=== PATIENT | female | born 1950 | race Caucasian/White ===

== ENCOUNTER 2016-09-16 10:27 | Emergency (ER) | payer OTHER ==
[2016-09-16 10:30] VITALS: PULSE 66; TEMP 97.6; BMI 20.2
--- NOTE | 2016-09-16 11:14 | PDOC ---
History of Present Illness - General History Source: Patient Exam Limitations: No Limitations - History of Present Illness Initial Comments: 09/16/16 12:06 The patient is a 66 year old female with a significant past medical history of hypercholesterolemia and rapid heart beat (on Tenormin), who presents to the ER with progressively worsening abdominal discomfort and diarrhea for 8 days. Patient states her pain began after she went to a green party and ate [place] [employer]. She says other people at the green party ate the same meal but did not report similar symptoms after. Patient localizes the abdominal pain to the middle. She describes the pain as burning and states she feels the burn going through her intestines. Patient took Tylenol and Pepto Bismol for her symptoms. She states has been noticing black stool for several days. Patient reports she has not eaten anything since yesterday but has had several bowel movements. Denies history of abdominal surgery or ulcers Denies fever, chills, cough Denies nausea, vomiting Denies dizziness PCP: Dr. Knott GI: Dr. Hall <Tatianna Lambert - Last Filed: 09/16/16 15:41> - General History Source: Patient, Old Records Exam Limitations: No Limitations <Cheli Cloud - Last Filed: 09/16/16 15:55> - General Chief Complaint: Pain Stated Complaint: ABD PAIN Time Seen by Provider: 09/16/16 11:13 Past History <Tatianna Lambert - Last Filed: 09/16/16 15:41> - Past Medical History Cardiac Disorders: Yes (rapid heart beat) Hypercholesterolemia: Yes - Surgical History Abdominal Surgery: (tubal ligation) Cholecystectomy: Yes - Psycho/Social/Smoking Cessation Hx Suicidal Ideation: No Smoking History: Current every day smoker Number of Cigarettes Smoked Daily: 30 Information on smoking cessation initiated: Yes 'Breaking Loose' booklet given: 09/16/16 Hx Alcohol Use: No Drug/Substance Use Hx: No Substance Use Type: None <Cheli Cloud - Last Filed: 09/16/16 15:55> - Past Medical History Allergies/Adverse Reactions: Allergies Allergy/AdvReac Type Severity Reaction Status Date / Time Penicillins Allergy Verified 09/16/16 10:30 Home Medications: Ambulatory Orders Ciprofloxacin [Cipro (Restricted To Id)] 500 mg PO Q12H #20 tablet 09/16/16 Metronidazole [Flagyl -] 500 mg PO TID #30 tablet 09/16/16 Review of Systems - Review of Systems Able to Perform ROS?: Yes Comments:: 09/16/16 12:06 GENERAL/CONSTITUTIONAL: No fever or chills. No weakness. HEAD, EYES, EARS, NOSE AND THROAT: No change in vision. No ear pain or discharge. No sore throat. CARDIOVASCULAR: No chest pain or shortness of breath. RESPIRATORY: No cough, wheezing, or hemoptysis. GASTROINTESTINAL: (+) abdominal pain (+) Diarrhea (+) black stool. No nausea, vomiting, constipation. GENITOURINARY: No dysuria, frequency, or change in urination. MUSCULOSKELETAL: No joint or muscle swelling or pain. No neck or back pain. SKIN: No rash NEUROLOGIC: No headache, vertigo, loss of consciousness, or change in strength/ sensation. ENDOCRINE: No increased thirst. No abnormal weight change. HEMATOLOGIC/LYMPHATIC: No anemia, easy bleeding, or history of blood clots. ALLERGIC/IMMUNOLOGIC: No hives or skin allergy. <Uts,Tatianna - Last Filed: 09/16/16 15:41> *Physical Exam - Vital Signs Last Vital Signs Temp Pulse Resp BP Pulse Ox 97.6 F 66 18 177/84 97 09/16/16 10:28 09/16/16 10:28 09/16/16 10:28 09/16/16 10:28 09/16/16 10:28 - Physical Exam Comments: 09/16/16 12:08 GENERAL: Awake, alert, and fully oriented, in no acute distress HEAD: No signs of trauma EYES: PERRLA, EOMI, sclera anicteric, conjunctiva clear ENT: Auricles normal inspection, hearing grossly normal, nares patent, oropharynx clear without exudates. Moist mucosa NECK: Normal ROM, supple, no lymphadenopathy, JVD, or masses LUNGS: Breath sounds equal, clear to auscultation bilaterally. No wheezes, and no crackles HEART: Regular rate and rhythm, normal S1 and S2, no murmurs, rubs or gallops ABDOMEN: Soft, nontender, normoactive bowel sounds. No guarding, no rebound. No masses EXTREMITIES: Normal range of motion, no edema. No clubbing or cyanosis. No cords, erythema, or tenderness NEUROLOGICAL: Cranial nerves II through XII grossly intact. Normal speech, normal gait SKIN: Warm, Dry, normal turgor, no rashes or lesions noted. <Tatianna Lambert - Last Filed: 09/16/16 15:41> - Vital Signs Last Vital Signs Temp Pulse Resp BP Pulse Ox 97.6 F 66 18 177/84 97 09/16/16 10:28 09/16/16 10:28 09/16/16 10:28 09/16/16 10:28 09/16/16 10:28 <Cheli Cloud - Last Filed: 09/16/16 15:55> ED Treatment Course - LABORATORY CBC & Chemistry Diagram: 09/16/16 11:50 09/16/16 11:50 - RADIOLOGY Radiograph Interpretation: 09/16/16 15:[address] impression reported by Dr. Lexis Lewis: Mild centrilobular emphysema and included portion of the right lung base. Small hiatus hernia. Status post cholcystectomy. Extensive diverticulosis coli mainly the sigmoid colon with likely chronic thickening of the proximal and mid sigmoid colon wall. There is questionable mild acute diverticulitis at the junction of the distal descending and proximal sigmoid colon. Follow-up is needed. 1.1 cm left adrenal nodule likely representing an adrenal adenoma. Grade 2 anterolisthesis of L5 cordell S1 with significant degenerative disc disease , bilateral spondylolysis and mild disc bulge likely impinging both L5 nerve roots. <Tatianna Lambert - Last Filed: 09/16/16 15:41> - LABORATORY CBC & Chemistry Diagram: 09/16/16 11:50 09/16/16 11:50 <Cheli Cloud - Last Filed: 09/16/16 15:55> Medical Decision Making - Medical Decision Making 09/16/16 11:32 66-year-old female with a the above stated past medical history presents the emergency Department with complaints of a day history of mid abdominal pain and epigastric pain as well as diarrhea with dark stool today. Differential diagnosis includes but is not limited to: Colitis, gastroenteritis, GI bleed, anemia, pancreatitis, peptic ulcer disease, electrolyte abnormality, dehydration , toxic/metabolic derangement. Plan: 1. Labs 2. Chest x-ray 3. EKG 4. Urine analysis 5. Will likely require abdominal imaging 6. Observe and reevaluate 09/16/16 15:52 Addendum: The labs are reviewed and are noted in the EMR. CT scan of the abdomen and pelvis shows small foci of diverticulitis with diverticulosis. Since the patient is afebrile, able to tolerate by mouth and has no white blood cell count will try treatment as an outpatient with Cipro and Flagyl. I have spoken with the patient regarding this diagnosis as well as the importance of follow-up. Her first dose of each medication will be given in the emergency department. I have also advised the patient to follow-up with her primary care physician within the next 1-3 days and to return to the emergency department if her symptoms persist, worsen, or new symptoms arise. <Cheli Cloud - Last Filed: 09/16/16 15:55> *DC/Admit/Observation/Transfer - Attestations Scribe Attestion: 09/16/16 12:08 Documentation prepared by Tatianna Lambert, acting as medical physicist for Cheli Cloud MD. <Tatianna Lambert - Last Filed: 09/16/16 15:41> - Discharge Dispostion Admit: No - Attestations Physician Attestion: 09/16/16 11:33 I, Dr. Cheli Cloud, attest that the scribes documentation that appears above has been prepared under my direction and personally reviewed by me in its entirety. I confirmed that the note above accurately reflects all work, treatment, procedures, and medical decision-making performed by me. <Cheli Cloud - Last Filed: 09/16/16 15:55> Diagnosis at time of Disposition: Abdominal pain, Diarrhea, Diverticulitis of intestine - Discharge Dispostion Condition at time of disposition: Stable - Prescriptions Prescriptions: Ciprofloxacin [Cipro (Restricted To Id)] 500 mg PO Q12H #20 tablet Metronidazole [Flagyl -] 500 mg PO TID #30 tablet - Referrals Referrals: Murphy Knott MD [Primary Care Provider] - - Patient Instructions Printed Discharge Instructions: DI for Diverticulitis Additional Instructions: You're being treated for diverticulitis with Cipro 500 mg twice daily for 10 days and Flagyl 500 mg 3 times a day for 10 days. Please follow-up with your primary care physician within the next 1-3 days and return to the emergency department if your symptoms persist, worsen, or new symptoms arise.
[2016-09-16 12:29] LABS: ALBUMIN 4.7 g/dl (3.4-5.0); ANION GAP 10 (8-16); CALCIUM 10.3 mg/dL (8.5-10.1); CO2 30 mmol/L (21-32); GLUCOSE,RANDOM 107 mg/dL (74-106); MAGNESIUM 2.2 mg/dL (1.8-2.4); SGPT/ALT 24 U/L (12-78)
[2016-09-16 12:33] LABS: URINE APPEARANCE CLEAR; URINE BILIRUBIN NEGATIVE (NEGATIVE); URINE COLOR STRAW; URINE GLUCOSE (UA) NEGATIVE (NEGATIVE); URINE KETONE NEGATIVE (NEGATIVE); URINE LEUK ESTERASE NEGATIVE (NEGATIVE); URINE NITRITE NEGATIVE (NEGATIVE); URINE PROTEIN NEGATIVE (NEGATIVE); URINE UROBILINOGEN NEGATIVE E.U./dl (0.2-1.0)
[2016-09-16 12:33] LABS: ALK PHOS 63 U/L (45-117); BILIRUBIN,TOTAL 0.7 mg/dL (0.2-1.0); CREATININE 0.8 mg/dL (0.55-1.02); PHOSPHOROUS 4.3 mg/dL (2.5-4.9); SGOT/AST 18 U/L (15-37); TOT PROT 7.8 g/dl (6.4-8.2); TROPONIN I < 0.02 ng/ml (0.00-0.05)
[2016-09-16 12:36] LABS: BASOPHIL 0.5 % (0-2.0); EOSINOPHIL 0.7 % (0-4.5); MCH 32.5 pg (25.7-33.7); MCHC 33.4 g/dl (32.0-36.0); MEAN CELL VOLUME 97.3 fl (80-96); MEAN PLT VOLUME 8.9 fl (7.5-11.1); NEUTROPHILS 67.1 % (42.8-82.8); PLATELET COUNT 208 K/MM3 (134-434); RDW 13.3 % (11.6-15.6); WHITE BLOOD COUNT 9.4 K/mm3 (4.0-10.0)
[2016-09-16 12:47] LABS: URINE BLOOD 1+ (NEGATIVE)
--- NOTE | 2016-09-16 14:07 | EKG ---
Test Reason : Blood Pressure : / mmHG Vent. Rate : 067 BPM Atrial Rate : 067 BPM P-R Int : 104 ms QRS Dur : 090 ms QT Int : 386 ms P-R-T Axes : 049 057 055 degrees QTc Int : 407 ms SINUS RHYTHM WITH SHORT WV OTHERWISE NORMAL ECG WHEN COMPARED WITH ECG OF 08-JUN-2002 05:44, NO SIGNIFICANT CHANGE WAS FOUND Confirmed by EDWARDO BARFIELD MD ([id number]) on 09/16/2016 2:06:46 PM Referred By: Confirmed By:EDWARDO BARFIELD MD
[2016-09-16 14:52] LABS: URINE RBC 3 /hpf (0-3); URINE WBC <1 /hpf (3-5)
[2016-09-16] MEDS ORDERED: CIPROFLOXACIN 500 MG TABLET (RESTRICTED TO ID) PO ONE (15:44)
[2016-09-16] MEDS ORDERED: metroNIDAZOLE 250 MG TABLET PO ONE (15:44)
[2016-09-16] MEDS ORDERED: metroNIDAZOLE 250 MG TABLET ONE (15:54)
[2016-09-16 16:17] VITALS: BP 114/65
== END 2016-09-16 16:22 | disposition home or self-care (01) ==
LOC: JER 10:27
DX: K57.20 Diverticulitis of large intestine with perforation and abscess without bleeding (principal)
CPT/HCPCS: 36415; 71020-TC; 74176-TC; 80053; 81003; 81015; 82272; 82550; 83690; 83735; 84100; 84484; 85025; 93005; 93010; 99282-25

== ENCOUNTER 2017-08-20 17:48 | Emergency (ER) | payer OTHER ==
--- NOTE | 2017-08-20 18:02 | PDOC ---
Attending Attestation - Resident Resident Name: Murphy Cottrell - ED Attending Attestation I have performed the following: I have examined & evaluated the patient, The case was reviewed & discussed with the resident, I agree w/resident's findings & plan, Exceptions are as noted <Ema Castaneda - Last Filed: 08/20/17 18:01> - HPI HPI: 08/20/17 18:32 The patient is a 66 year old female with a significant past medical history of diverticulitis, hypercholesterolemia, and rapid heart beat who presents to the emergency department with diarrhea and rectal bleeding for 1 day. The patient reports that she had a sudden onset of diarrhea this morning after she woke up. She reports that her diarrhea was runny and contained blood. The patient reports that her diarrhea has been constant for about every 20 minutes. The patient reports associated cramps and chills earlier today. The patient denies any other complaints. She denies any nausea, vomiting or fever. She denies any shortness of breath or chest pain . The patient denies any numbness, weakness or tingling. The patient also denies any dysuria, urinary frequency, urgency and hematuria. It is noted that the patient has a history of diverticulitis but she reports that this complication does not feel like her normal diverticulitis symptoms. Allergies: penicillin Past surgical history: none reported Social history: No reported Documentation prepared by Garrett Mcleod, acting as director global medical affairs for Ema Castaneda MD. <Garrett Mcleod - Last Filed: 08/20/17 18:34> Review of Systems - Review of Systems Able to Perform ROS?: Yes Comments:: 08/20/17 18:32 GENERAL/CONSTITUTIONAL: (+) chils. No fever . No weakness. HEAD, EYES, EARS, NOSE AND THROAT: No change in vision. No ear pain or discharge. No sore throat. CARDIOVASCULAR: No chest pain or shortness of breath. RESPIRATORY: No cough, wheezing, or hemoptysis. GASTROINTESTINAL: (+) diarrhea with blood. No nausea, vomiting, or constipation. GENITOURINARY: No dysuria, frequency, or change in urination. MUSCULOSKELETAL: No joint or muscle swelling or pain. No neck or back pain. SKIN: No rash NEUROLOGIC: No headache, vertigo, loss of consciousness, or change in strength/ sensation. ENDOCRINE: No increased thirst. No abnormal weight change. HEMATOLOGIC/LYMPHATIC: No anemia, easy bleeding, or history of blood clots. ALLERGIC/IMMUNOLOGIC: No hives or skin allergy. Is the patient limited [place]ander proficient: No <Garrett Mcleod - Last Filed: 08/20/17 18:34>
--- NOTE | 2017-08-20 18:17 | PDOC ---
History of Present Illness - General Chief Complaint: Rectal Bleed Stated Complaint: DIARRHEA,RECTAL BLEEDING Time Seen by Provider: 08/20/17 17:51 History Source: Patient Exam Limitations: No Limitations - History of Present Illness Initial Comments: 08/20/17 18:01 The patient is a 66F with a PMH of HLD, diverticulitis, and rapid heart beat ( on Tenormin) who presents to the ER with bloody diarrhea. The patient states that she had a normal bowel movement this morning then 1/2 hour later, felt b/l lower quadrant. She then felt an urge to defecate, went to the restroom, and had watery diarrhea with blood. The blood was on the toilet paper and in the bowl. The patient denies nausea, vomiting, CP, SOB, fever. She admits to finishing a z-pack 3 weeks ago for "the flu". Past History - Past Medical History Allergies/Adverse Reactions: Allergies Allergy/AdvReac Type Severity Reaction Status Date / Time Penicillins Allergy Mild Rash Verified 08/20/17 17:50 Iodinated Contrast- Oral and AdvReac Intermediate Verified 08/20/17 18:19 IV Dye Home Medications: Ambulatory Orders Aspirin [ASA -] 81 mg PO DAILY 08/20/17 Atenolol [Tenormin] 50 mg PO BID 08/20/17 Ezetimibe/Simvastatin [Vytorin 10-20 mg Tablet] 1 tab PO DAILY 08/20/17 Magnesium Chloride [Slow-Mag -] 0 mg PO DAILY 08/20/17 Ranitidine HCl [Zantac] 150 mg PO DAILY 08/20/17 Cardiac Disorders: Yes (rapid heart beat) COPD: No GI Disorders: Yes HTN: Yes Hypercholesterolemia: Yes - Surgical History Abdominal Surgery: (tubal ligation) Cholecystectomy: Yes - Suicide/Smoking/Psychosocial Hx Smoking History: Current every day smoker Number of Cigarettes Smoked Daily: 30 Information on smoking cessation initiated: Yes 'Breaking Loose' booklet given: 08/20/17 Hx Alcohol Use: No Drug/Substance Use Hx: No Substance Use Type: None Review of Systems - Review of Systems Able to Perform ROS?: Yes Comments:: 08/20/17 18:26 GENERAL/CONSTITUTIONAL: Positive for chills. No fever. No weakness. HEAD, EYES, EARS, NOSE AND THROAT: No change in vision. No ear pain or discharge. No sore throat. CARDIOVASCULAR: No chest pain, palpitations, or lightheadedness. RESPIRATORY: No cough, wheezing, shortness of breath, or hemoptysis. GASTROINTESTINAL: Positive for abdominal cramping and watery diarrhea with blood. No nausea or vomiting. GENITOURINARY: No dysuria, frequency, hematuria, or change in urination. MUSCULOSKELETAL: No joint or muscle swelling or pain. No neck or back pain. SKIN: No rash or lesions. NEUROLOGIC: No headache, numbness, tingling, weakness, loss of consciousness, or change in strength/sensation. ENDOCRINE: No increased thirst. No abnormal weight change. HEMATOLOGIC/LYMPHATIC: No anemia, easy bleeding, or history of blood clots. ALLERGIC/IMMUNOLOGIC: No hives or skin allergy. Is the patient limited Jamaican proficient: No *Physical Exam - Vital Signs Last Vital Signs Temp Pulse Resp BP Pulse Ox 97.6 F 76 18 114/71 99 08/20/17 17:49 08/20/17 17:49 08/20/17 17:49 08/20/17 17:49 08/20/17 17:49 - Physical Exam Comments: 08/20/17 18:30 GENERAL: Well developed, well nourished. Awake and alert. No acute distress. HEENT: Normocephalic, atraumatic. Hearing grossly normal. Moist mucous membranes. PERRLA, EOMI. No conjunctival pallor. Sclera are non-icteric. NECK: Supple. Full ROM. No JVD. CARDIOVASCULAR: Regular rate and rhythm. No murmurs, rubs, or gallops. PULMONARY: No evidence of respiratory distress. Lungs clear to auscultation bilaterally. No wheezing, rales or rhonchi. ABDOMINAL: Soft. Non-tender. Non-distended. No rebound or guarding. No organomegaly. Normoactive bowel sounds. RECTAL: External hemorrhoid present, nontender and nonthrombosed. Rectal vault empty. No gross blood noted. GENITOURINARY: No CVA tenderness bilaterally. MUSCULOSKELETAL: Normal range of motion at all joints. No bony deformities or tenderness. EXTREMITIES: No cyanosis. No clubbing. No edema. No calf tenderness. SKIN: Warm and dry. Normal capillary refill. No rashes. No jaundice. NEUROLOGICAL: Alert, awake, appropriate. Cranial nerves 2-12 intact. Normal speech. Gait is normal without ataxia. PSYCHIATRIC: Cooperative. Good eye contact. Appropriate mood and affect. Medical Decision Making - Medical Decision Making 08/20/17 18:31 The patient is a 66F with a PMH of diverticulitis who presents to the ER after experiencing multiple episodes of watery diarrhea and bleeding. With her history of diverticulitis, I will image her abdomen to r/o infection/abscess. Will have to do it w/o contrast as the patient is allergic to IV contrast. Pending labs/imaging. Will give 1L NS for hydration. 08/20/17 19:01 Pt signed out to Dr. Saunders. *DC/Admit/Observation/Transfer - Discharge Dispostion Condition at time of disposition: Stable - Referrals - Patient Instructions Printed Discharge Instructions: Smoking Cessation - Post Discharge Activity
[2017-08-20] MEDS ORDERED: SODIUM CHLORIDE 0.9% 1000 ML INFUS.BAG IV ONE (18:20)
[2017-08-20 18:25] VITALS: BP 114/71; PULSE 76; TEMP 97.6; BMI 20.5
[2017-08-20 19:10] LABS: BASO % 0.7 % (0-2.0); HEMATOCRIT 41.3 % (32.4-45.2); LYMPH % 29.3 % (8-40); MCH 31.7 pg (25.7-33.7); MEAN CELL VOLUME 93.4 fl (80-96); MEAN PLT VOLUME 8.7 fl (7.5-11.1); MONO % 5.6 % (3.8-10.2); NEUT % 62.4 % (42.8-82.8); PLATELET COUNT 211 K/MM3 (134-434); RBC 4.43 M/mm3 (3.60-5.2); RDW 12.9 % (11.6-15.6); WHITE BLOOD COUNT 8.8 K/mm3 (4.0-10.8)
[2017-08-20 19:23] LABS: ALBUMIN 4.3 g/dl (3.5-5.0); ALK PHOS 58 U/L (32-92); ANION GAP 7 (8-16); BILIRUBIN,TOTAL 0.6 mg/dl (0.2-1.0); BLOOD UREA NITROGEN 17 mg/dl (7-18); CALCIUM 9.5 mg/dl (8.4-10.2); CHLORIDE 103 mmol/L (98-107); CO2 28 mmol/L (22-28); GLUCOSE,RANDOM 91 mg/dl (74-106); POTASSIUM 4.5 mmol/L (3.5-5.1); SGOT/AST 24 U/L (10-42); SGPT/ALT 13 U/L (10-40); SODIUM 138 mmol/L (136-145); TOT PROT 6.9 g/dl (6.4-8.3)
--- NOTE | 2017-08-20 19:38 | PDOC ---
*Physical Exam - Vital Signs Last Vital Signs Temp Pulse Resp BP Pulse Ox 97.6 F 76 18 114/71 99 08/20/17 17:49 08/20/17 17:49 08/20/17 17:49 08/20/17 17:49 08/20/17 17:49 ED Treatment Course - LABORATORY CBC & Chemistry Diagram: 08/20/17 18:45 04 18:45 - ADDITIONAL ORDERS Additional order review: Laboratory Results 08/20/17 04 18:45 18:42 Sodium 138 Potassium 4.5 Chloride 103 Carbon Dioxide 28 Anion Gap 7 L BUN 17 Creatinine 1.0 Creat Clearance w eGFR 55.47 Random Glucose 91 Calcium 9.5 Total Bilirubin 0.6 AST 24 ALT 13 Alkaline Phosphatase 58 Total Protein 6.9 Albumin 4.3 Stool Occult Blood Negative 08/20/17 18:45 RBC 4.43 MCV 93.4 MCHC 34.0 RDW 12.9 MPV 8.7 Neutrophils % 62.4 Lymphocytes % 29.3 Monocytes % 5.6 Eosinophils % 2.0 Basophils % 0.7 - Medications Given in the ED: ED Medications Discontinued Medications Generic Name Dose Route Start Last Admin Trade Name Freq PRN Reason Stop Dose Admin Sodium Chloride 1,000 ml 08/20/17 18:20 08/20/17 18:46 Normal Saline - IV 08/20/17 18:21 1,000 ml ONCE ONE Administration Progress Note - Progress Note Progress Note: Care of this patient was transferred to co from Dr. Castaneda and the EM resident. Patient is a 66-year-old female with history of diverticulitis. Patient comes in complaining of some left lower quadrant pain and diarrhea. Patient did have an episode of bloody diarrhea however on Dr. Giraldo's exam patient does have a external hemorrhoid that may have been the source of the bloody diarrhea. Patient is being hydrated with IV fluid and her lab work shows a normal white count there is no left shift and the chemistries are all normal. Patient has a CT of the abdomen and pelvis to rule out diverticulitis pending. We'll follow-up results of CAT scan and make appropriate disposition 20:00 Reevaluation patient feels better. She's had no more diarrhea here in the emergency room. Patient given results of her lab work which was normal her CAT scan which was also normal and discharged home Patient will follow-up with her primary care doctor *DC/Admit/Observation/Transfer Diagnosis at time of Disposition: Dehydration Diarrhea Qualifiers: Diarrhea type: unspecified type Qualified Code(s): R19.7 - Diarrhea, unspecified - Discharge Dispostion Disposition: HOME Condition at time of disposition: Stable Admit: No - Referrals - Patient Instructions Printed Discharge Instructions: Smoking Cessation Additional Instructions: If the diarrhea returns you can take Imodium or Pepto-Bismol as directed on the bottle. Make sure you stay well hydrated. Return to the emergency department immediately with ANY new, persistent or worsening symptoms. Continue any medications as previously prescribed by your physician. You should follow up with your primary doctor as soon as possible regarding today's emergency department visit. . Please make sure your doctor reviews the results of your emergency evaluation. Thank you for coming to the Emergency Department today for your care. It was a pleasure to see you today. Please note that your evaluation is INCOMPLETE until you follow-up with your doctor. - Post Discharge Activity
== END 2017-08-20 20:10 | disposition home or self-care (01) ==
LOC: FER 17:48
PROC: 3E0337Z Introduction of Electrolytic and Water Balance Substance into Peripheral Vein, Percutaneous Approach (ICD-10-PCS; principal; 2017-08-20)
DX: R68.83 Chills (without fever) (principal); E86.0 Dehydration; R19.7 Diarrhea, unspecified; E78.5 Hyperlipidemia, unspecified; I10 Essential (primary) hypertension; E78.00 Pure hypercholesterolemia, unspecified
CPT/HCPCS: 36415; 74176-TC; 80053; 82272; 85025; 99282-25; J7030

== ENCOUNTER 2018-08-09 15:34 | Emergency (ER) | payer OTHER ==
--- NOTE | 2018-08-09 15:37 | PDOC ---
History of Present Illness - General Chief Complaint: Injury Stated Complaint: left ankle injury Time Seen by Provider: 08/09/18 15:37 History Source: Patient Exam Limitations: No Limitations - History of Present Illness Initial Comments: 08/09/18 15:49 HPI 67F with a PMH of HLD, diverticulitis, and rapid heart beat (on Tenormin), GERD who presents to the ER presenting with left foot pain and swelling s/p twisting while hopping over ramos when gardening. She slid on the wet dirt and rolled her foot/ankle. she subsequently hopped to get around, unable to bear weight and limped. No fall or additional trauma. No weakness or paresthesias. No LOC or head injury. Took aleve 1 hour [employer], with relief. Allergies: pcn, iodine and contrast dye Past Medical History: HLD, diverticulitis, and rapid heart beat (on Tenormin), GERD Social history: Lives with family. + smoking. No alcohol. No illicit drugs. Surgical history: noncontributory 08/09/18 15:50 Past History - Past Medical History Allergies/Adverse Reactions: Allergies Allergy/AdvReac Type Severity Reaction Status Date / Time Penicillins Allergy Mild Rash Verified 08/09/18 15:39 Iodinated Contrast- Oral and AdvReac Intermediate Verified 08/09/18 15:39 IV Dye Home Medications: Ambulatory Orders Aspirin [ASA -] 81 mg PO DAILY 08/20/17 Atenolol [Tenormin] 50 mg PO BID 08/20/17 Ezetimibe/Simvastatin [Vytorin 10-20 mg Tablet] 1 tab PO DAILY 08/20/17 Magnesium Chloride [Slow-Mag -] 0 mg PO DAILY 08/20/17 Ranitidine HCl [Zantac] 150 mg PO DAILY 08/20/17 Ibuprofen [Advil -] 400 mg PO ONCE PRN 08/09/18 Cardiac Disorders: Yes (rapid heart beat) COPD: No GI Disorders: Yes HTN: Yes Hypercholesterolemia: Yes - Surgical History Abdominal Surgery: (tubal ligation) Cholecystectomy: Yes - Suicide/Smoking/Psychosocial Hx Smoking History: Current every day smoker Number of Cigarettes Smoked Daily: 30 'Breaking Loose' booklet given: 08/20/17 Hx Alcohol Use: No Drug/Substance Use Hx: No Substance Use Type: None Review of Systems - Review of Systems Able to Perform ROS?: Yes Comments:: 08/09/18 15:49 Review of systems MUSCULOSKELETAL: + joint pain and swelling. No neck or back pain. SKIN: no redness or skin changes, no discharge, no rash. No wounds. Hematologic: no easy bruising/bleeding. NEUROLOGIC: No headache, dizziness, LOC or altered mental status. No weakness, numbness or tingling. Allergic/Immunologic: medication allergies All other systems reviewed and negative, or as documented in HPI. *Physical Exam - Physical Exam Comments: 08/09/18 15:50 General: NAD, well appearing Vascular: 2+ DP pulses symmetric and equal. Back: no midline tenderness, no stepoffs, FROM Focused MSK/Neuro Exam notable for soft compartments, Cap refill <2 sec. Proximal and distal strength 5/5, employee representative strength 5/5 - equal and symmetric. Plantar flexion and dorsiflexion 5/5. FROM. Sensation grossly intact to light touch. No prox tibial/knee tenderness. +left lateral dorsal foot tenderness, warmth and palp swelling. No crepitus. No ankle/malleolar tenderness, inversion/eversion intact 5/5 against resistance. Skin: color normal color, warm and well perfused. No ecchymosis or wounds/skin breaks Medical Decision Making - Medical Decision Making 08/09/18 15:51\ DDx extremity pain: Sprain, contusion, extremity fracture, NVI and no neuro deficits. Xray left foot/ankle - normal joint space alignment, normal mortise. metatarsals intact, no acute fx or dislocation. no e/o Lisfranc. Discussed results with patient. HIMA wrap for comfort, hard sole shoe. Rest ice and elevation. Pain control with OTC meds including motrin/tylenol as needed every 6 hours; no narcotics needed. Ortho followup provided. WBAT. Please return to ED for increased pain, weakness, numbness/tingling, fever, or redness. expectant management x 3-5 days. ortho and PMD followup. 08/09/18 17:14 *DC/Admit/Observation/Transfer Diagnosis at time of Disposition: Unspecified sprain of left foot, initial encounter - Discharge Dispostion Disposition: HOME Condition at time of disposition: Improved Decision to Admit order: No - Referrals Referrals: David Cardona MD [Staff Physician] - Harshad Mcclure MD [Staff Physician] - - Patient Instructions Printed Discharge Instructions: DI for Foot Sprain Additional Instructions: you most likely have musculoskeletal strain avoid heavy lifting or strenuous activity rest and take tylenol and/or motrin every 6 hours as needed for mild to moderate pain. continue with range of motion exercises. RICE rest ice elevate the affected extremity Rest, Ice (20 minutes at a time, 3 times a day), Compression (HIMA wrap or splint ), Elevation (above the heart). Follow up with your primary care physician in 1 week if symptoms persist, or with orthopedics if needed. Follow up with primary doctor/sharepoint specialist services provided as well. orthopedics referrals given. This should heal over the next 3-5 days. - Post Discharge Activity
[2018-08-09] MEDS ORDERED: IBUPROFEN 600 MG TABLET (FP) PO ONE (15:41)
[2018-08-09] MEDS ORDERED: ACETAMINOPHEN 325 MG TABLET (FP) PO ONE (15:47)
[2018-08-09 15:54] VITALS: BP 121/68; PULSE 68; TEMP 98.5; BMI 21.0
[2018-08-09] MEDS ORDERED: ACETAMINOPHEN 325 MG TABLET (FP) ONE (16:44)
== END 2018-08-09 17:22 | disposition home or self-care (01) ==
LOC: FER 15:34
DX: S93.602A Unspecified sprain of left foot, initial encounter (principal); X58.XXXA Exposure to other specified factors, initial encounter; Y93.89 Activity, other specified; Y92.89 Other specified places as the place of occurrence of the external cause; F17.210 Nicotine dependence, cigarettes, uncomplicated; I10 Essential (primary) hypertension; I49.9 Cardiac arrhythmia, unspecified; E78.00 Pure hypercholesterolemia, unspecified; K21.9 Gastro-esophageal reflux disease without esophagitis
CPT/HCPCS: 73610-TC-LT-FY; 73630-TC-LT; 99282-25